=== PATIENT | female | born 1980 | race African-American/Black ===

== ENCOUNTER 2019-02-12 00:56 | Emergency (ER) | payer MEDICAID ==
[2019-02-12 01:45] LABS: Basophils % (Auto) 0.6 % (0.0-1.8); Eosinophils # (Auto) 0.3 K/mm3 (0.0-0.4); Hematocrit 40.2 % (30.3-42.9); Hemoglobin 13.5 gm/dl (10.1-14.3); Lymphocytes # (Auto) 1.9 K/mm3 (1.2-5.4); Lymphocytes % (Auto) 26.5 % (13.4-35.0); Mean Corpuscular HGB Conc 34 % (30-34); Mean Corpuscular Volume 97 fl (79-97); Monocytes # (Auto) 0.6 K/mm3 (0.0-0.8); Monocytes % (Auto) 8.3 % (0.0-7.3); Platelet Count 194 K/mm3 (140-440); Red Blood Count 4.14 M/mm3 (3.65-5.03); Red Cell Distribution Width 12.9 % (13.2-15.2)
[2019-02-12 02:10] LABS: Alanine Aminotransferase 7 units/L (7-56); Albumin 4.1 g/dL (3.9-5); BUN/Creatinine Ratio 16; Blood Urea Nitrogen 11 mg/dL (7-17); Hemolysis Index 6
[2019-02-12 02:11] LABS: Bilirubin,Urine NEG (Negative); Blood,Urine NEG (Negative); Color,Urine Straw (Yellow); HCG Qualitative,Urine Negative (Negative); Mucus,Urine FEW /HPF; Protein,Urine <15 mg/dL mg/dL (Negative); Urobilinogen,Urine < 2.0 mg/dL (<2.0)
--- NOTE | 2019-02-12 02:50 | Emergency Department Report ---
ED Abdominal Pain HPI - General Chief Complaint: Abdominal Pain Stated Complaint: ABD PAIN Time Seen by Provider: 02/12/19 02:40 Source: patient Mode of arrival: Ambulatory Limitations: No Limitations - History of Present Illness Initial Comments: Patient is 38 years old female with no significant past medical history. Patient presented to the ER complaining of epigastric abdominal pain starting yesterday. 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 Patient stated that as soon as she took the doxycycline on an empty stomach she started having abdominal pain but denied any vomiting or diarrhea. Patient denied any fever, chills, chest pain or shortness of breath. MD Complaint: abdominal pain - Related Data Home Medications Medication Instructions Recorded Confirmed Last Taken DOXYCYCLINE Hyclate 100 mg PO Q12H 02/12/19 02/12/19 02/11/19 Allergies Allergy/AdvReac Type Severity Reaction Status Date / Time No Known Allergies Allergy Unverified 02/12/19 01:11 ED Review of Systems ROS: Stated complaint: ABD PAIN Other details as noted in HPI Comment: All other systems reviewed and negative Constitutional: denies: chills, fever Respiratory: denies: cough, orthopnea, shortness of breath, SOB with exertion, SOB at rest, wheezing Cardiovascular: denies: chest pain, palpitations Gastrointestinal: abdominal pain. denies: nausea, vomiting, diarrhea, constipation, hematemesis, melena, hematochezia Musculoskeletal: denies: back pain Neurological: denies: headache, weakness, numbness, paresthesias, confusion ED Past Medical Hx - Past Medical History Previous Medical History?: No - Surgical History Past Surgical History?: No - Social History Smoking Status: Current Every Day Smoker Substance Use Type: None - Medications Home Medications: Home Medications Medication Instructions Recorded Confirmed Last Taken Type DOXYCYCLINE Hyclate 100 mg PO Q12H 02/12/19 02/12/19 02/11/19 History ED Physical Exam - General Limitations: No Limitations General appearance: alert, in no apparent distress - Head Head exam: Present: atraumatic, normocephalic, normal inspection - Eye Eye exam: Present: normal appearance - ENT ENT exam: Present: normal exam, normal orophraynx, mucous membranes moist - Neck Neck exam: Present: normal inspection, full ROM. Absent: tenderness, meningismus, lymphadenopathy, thyromegaly - Respiratory Respiratory exam: Present: normal lung sounds bilaterally - Cardiovascular Cardiovascular Exam: Present: regular rate, normal rhythm, normal heart sounds - GI/Abdominal GI/Abdominal exam: Present: soft, normal bowel sounds. Absent: distended, tenderness, guarding, rebound, rigid, organomegaly, mass, bruit, pulsatile mass, hernia - Extremities Exam Extremities exam: Present: normal inspection, full ROM, normal capillary refill. Absent: pedal edema, calf tenderness - Back Exam Back exam: Present: normal inspection, full ROM. Absent: tenderness, CVA tenderness (R), CVA tenderness (L), muscle spasm, paraspinal tenderness, vertebral tenderness - Neurological Exam Neurological exam: Present: alert, oriented X3, CN II-XII intact, normal gait, reflexes normal - Skin Skin exam: Present: warm, intact, normal color ED Course Vital Signs 02/12/19 01:05 Temperature 98.4 F Pulse Rate 67 Respiratory 18 Rate Blood Pressure 116/64 O2 Sat by Pulse 98 Oximetry ED Medical Decision Making - Lab Data Result diagrams: 02/12/19 01:20 02/12/19 01:20 - Medical Decision Making Patient labs reviewed and is unremarkable. Abdomen is soft and nontender with no clinical or laboratory evidence of acute abdomen. No clinical evidence of acute appendicitis. Patient's symptoms is most likely related to taking doxycycline. I will change her medication to Macrobid and advised to follow-up with her primary care physician in the next 2-3 days and to return to the ER if symptoms are not improved. Critical care attestation.: If time is entered above; I have spent that time in minutes in the direct care of this critically ill patient, excluding procedure time. ED Disposition Clinical Impression: Abdominal pain Disposition: DC-01 TO HOME OR SELFCARE Is pt being admited?: No Condition: Stable Instructions: Abdominal Pain (ED) Referrals: PRIMARY CARE, [Referring] - 3-5 Days
[2019-02-12 03:15] VITALS: BP 92/60
== END 2019-02-12 03:13 | disposition home or self-care (01) ==
LOC: ED 00:56
DX: R10.13 Epigastric pain (principal); F17.200 Nicotine dependence, unspecified, uncomplicated
CPT/HCPCS: 36415; 80053; 81001; 81025; 85025; 99283

== ENCOUNTER 2019-12-02 09:08 | Day surgery (SDC) | payer MEDICAID ==
[2019-12-02] MEDS ORDERED: LACTATED RINGERS 1,000 ML IV SCH (10:09)
[2019-12-02] MEDS ORDERED: MIDAZOLAM 2 MG/2 ML INJ IV NR (10:09)
--- NOTE | 2019-12-02 10:11 | Anesthesia Day of Surgery ---
Anesthesia Day of Surgery - Day of Surgery Patient Examined: Yes Patient H&P Reviewed: Yes Patient is NPO: Yes
--- NOTE | 2019-12-02 10:11 | Anesthesia Consultation ---
Anesthesia Consult and Med Hx Date of service: 12/02/19 - Airway Anesthetic Teeth Evaluation: Good ROM Head & Neck: Adequate Mental/Hyoid Distance: Adequate Mallampati Class: Class II Intubation Access Assessment: Good - Pulmonary Exam CTA: Yes - Cardiac Exam Cardiac Exam: No Murmur - Pre-Operative Health Status ASA Pre-Surgery Classification: ASA1, ASA2 Proposed Anesthetic Plan: General - Pulmonary Hx Smoking: Yes (QUIT 2018; STARTED IN HER 20'S) - Central Nervous System Hx Psychiatric Problems: No - Other Systems Hx Alcohol Use: No Hx Substance Use: No Hx Cancer: No
[2019-12-02] MEDS ORDERED: LIDOCAINE (1%) 10 MG/1 ML VIAL 20 ML MDV ONE (12:46)
[2019-12-02] MEDS ORDERED: DIBUCAINE 1% OINT 28 GM ONE (12:47)
[2019-12-02] MEDS ORDERED: BUPIVACAINE/PF (0.5%) 5 MG/1 ML 30 ML VIAL INFILTRATI ONE ×3 (12:47→14:05)
[2019-12-02] MEDS ORDERED: HYDROmorphone 1 MG/1 ML INJ ONE (12:55)
[2019-12-02] MEDS ORDERED: propofoL 200 MG/20 ML VIAL IV ONE (12:56)
[2019-12-02] MEDS ORDERED: ROCURONIUM 50 MG/5 ML INJ IV ONE (13:33)
[2019-12-02] MEDS ORDERED: dexAMETHasone 20 MG/5 ML VIAL ONE (13:33)
[2019-12-02] MEDS ORDERED: ONDANSETRON 4 MG/2 ML INJ ONE (13:33)
[2019-12-02] MEDS ORDERED: LIDOCAINE MPF (2%) 20 MG/1 ML VIAL 5 ML ONE (13:33)
[2019-12-02] MEDS ORDERED: LIDOCAINE (1%) 10 MG/1 ML VIAL 20 ML MDV INFILTRATI ONE ×2 (14:05)
[2019-12-02] MEDS ORDERED: DIBUCAINE 1% OINT 28 GM PR ONE (14:09)
[2019-12-02] MEDS ORDERED: LACTATED RINGERS 1,000 ML ONE (14:27)
[2019-12-02] MEDS ORDERED: NEOSTIGMINE 10MG/10 ML INJ MDV ONE (14:35)
[2019-12-02] MEDS ORDERED: GLYCOPYRROLATE 0.4 MG/2 ML INJ ONE (14:35)
--- NOTE | 2019-12-02 14:44 | Short Stay Summary ---
Short Stay Documentation Date of service: 12/02/19 - History Principal diagnosis: internal and external hemorrhoids H&P: obtained from office - Allergies and Medications Current Medications: Allergies No Known Allergies Allergy (Verified 11/26/19 14:10) Home Medications Medication Instructions Recorded Confirmed Last Taken Type No Known Home Medications [No 11/26/19 11/26/19 Unknown History Reported Home Medications] Active Medications Lactated Ringer's (Lactated Ringers) 1,000 mls @ 100 mls/hr IV DIRECT KIYA Last Admin: 12/02/19 10:26 Dose: 100 mls/hr Documented by: Midazolam HCl (Versed) 2 mg IV ONCE NR Stop: 12/02/19 18:00 Last Admin: 12/02/19 10: Dose: 2 mg Documented by: - Brief post op/procedure progress note Date of procedure: 12/02/19 Pre-op diagnosis: internal and external hemorrhoids Post-op diagnosis: same Procedure: Hemorrhoidectomy Anesthesia: GETA, local Findings: 1. Large left lateral internal/external hemorrhoid complex 2. <1cm external skin tag at the right posterior position Surgeon: DAVIDA TAVERA Estimated blood loss: 50-100ml Pathology: list (internal and external hemorrhoids) Specimen disposition: to lab Condition: stable - Hospital course Hospital course: Pt observed in PACU and discharged to home in stable condition when criteria met - Disposition Condition at discharge: Good Disposition: DC-01 TO HOME OR SELFCARE Short Stay Discharge Plan Activity: no restrictions Diet: regular (soft diet) Wound: per your surgeon's advice Additional Instructions: Please see printed discharge instruction. 1. Leave outer dressing in place until tomorrow. It may be removed and replaced with a sanitary pad if it becomes soiled or comes off with your first bowel movement 2. Take pain medications as prescribed 3. Take stool softeners as prescribed 4. You may notice some bleeding with your first few bowel movements. If the bleeding is persistent, please call your surgeon right away Follow up with: JT CARRILLO JR, MD [Primary Care Provider] - 7 Days DAVIDA TAVERA DO [Staff Physician] - 7 Days Prescriptions: Docusate Sodium [Colace] 100 mg PO BID 5 Days #30 capsule Polyethylene Glycol 3350 [Miralax] 119 gm PO DAILY 5 Days #5 powder oxyCODONE /ACETAMINOPHEN [Percocet 5/325] 1 tab PO Q4HR PRN #30 tab PRN Reason: Pain , Severe (7-10)
[2019-12-02] MEDS ORDERED: oxyCODONE /ACETAMINOPHEN 5-325MG TAB PO PRN (15:03)
--- NOTE | 2019-12-02 16:32 | Post Anesthesia Evaluation ---
- Post Anesthesia Evaluation Patient Participated: Yes Airway Patent: Yes Stable Respiratory Function: Yes Nausea/Vomiting: No Temp > 96.8F: Yes Pain Manageable: Yes Adequeate Hydration: Yes Anesthesia Complications: No
--- NOTE | 2019-12-02 16:39 | Operative Report ---
Operative Report Operative Report: Date of procedure: 12/02/19 Pre-op diagnosis: internal and external hemorrhoids Post-op diagnosis: same Procedure: Hemorrhoidectomy Anesthesia: GETA, local Findings: 1. Large left lateral internal/external hemorrhoid complex 2. <1cm external skin tag at the right posterior position Surgeon: DAVIDA TAVERA Estimated blood loss: 50-100ml Pathology: list (internal and external hemorrhoids) Specimen disposition: to lab Condition: stable - Hospital course Hospital course: Pt observed in PACU and discharged to home in stable condition when criteria met HPI and indication: The patient is a 39-year-old female with a past medical history of internal and external hemorrhoids. The patient has been feeling significant discomfort from the hemorrhoids over the last several years however has been using topical medications. She states that after 10 years, these topical medications have not helped and she is opting for surgical resection. On physical exam the patient was found to have a large left lateral internal hemorrhoid with external hemorrhoid. I discussed all risks, benefits, alternatives to surgery and questions answered. Consent was obtained. Procedure in detail: The patient identified in the preoperative area and taken back to the operating room. Anesthesia was induced in the hospital bed and after the patient was intubated and the ET tube secured, she was placed on the operating room table in prone position. All bony prominences were padded appropriately. The patient was secured to the bed and the buttocks were taped apart using silk tape. She was placed in jackknife position and the rectum, anus and perineal areas were prepped and draped in the usual sterile fashion. A timeout was performed. A rectal exam was performed under anesthesia by inserting a retractor into the anus. There was a large hemorrhoidal complex in the left lateral position consisting of internal and external hemorrhoids. She also had a smaller hemorrhoidal column in the right anterior position. She had a small, less than 1 cm external skin tag in the right posterior position. The decision was made to remove the largest hemorrhoidal complex. A 2-0 Vicryl stitch was placed at the apex of the hemorrhoid at the left lateral position. The mucosa was scored with a 10 blade and this was carried out to the external hemorrhoid complex. Using a hand-held harmonic the hemorrhoid was dissected off of the underlying muscle and hemostasis achieved along the way. Once apex of the hemorrhoid was encountered the hemorrhoid was transected and passed off the table as a specimen. The wound bed was checked for hemostasis which was carefully ensured. The mucosa was then reapproximated using the 2-0 Vicryl stitch that was placed at the apex in a running fashion. A portion of the incision closest to the anal skin was left open for drainage. 2 small areas of mucosal bleeding were controlled using [id number] Vicryl suture. The anal skin, at the site of external hemorrhoid excision was reapproximated with a 3-0 chromic suture. I then turned my attention to removing the external skin tag at the right posterior position. This was done using a 10 blade. The skin was reapproximated using 3-0 chromic suture. The rectum was checked for hemostasis multiple times. The rectum was irrigated until the irrigant returned clear. Once hemostasis was ensured the rectum was packed with a Surgifoam roll coated in lidocaine jelly. Scant oozing from the anal skin was controlled using Surgicel and pressure. A perianal nerve block was performed. A 4 x 4 gauze and ABD pad were placed over the rectum and secured with 1 piece of tape and mesh underwear. At the end of the case, all sponge, instrument, sharp counts were correct x2. The patient was transferred to the stretcher in supine position and awoken from anesthesia, extubated, taken to PACU in stable condition.
[2019-12-02 21:30] VITALS: BP 122/68
== END 2019-12-02 09:09 | disposition home or self-care (01) ==
LOC: OR 09:08
PROVIDERS: ATTEND Surgery
DX: K64.0 First degree hemorrhoids (principal); Z79.899 Other long term (current) drug therapy; Z87.891 Personal history of nicotine dependence; Z98.82 Breast implant status; Z98.890 Other specified postprocedural states
CPT/HCPCS: 46260; 81025; 88304; J1100; J1170; J2250; J2405; J2704; J2710; J7120